=== PATIENT | male | born 1990 | race African-American/Black ===

== ENCOUNTER 2021-01-16 14:50 | Emergency (ER) | payer OTHER ==
[~2021-01-16] VITALS: Ht 182.9 cm; Wt 83.9 kg
[2021-01-16 14:50] VITALS: BP 155/101
[~2021-01-16 14:50] MED LIST: CIPROFLOXACIN500 M1 PO; NAPROSYN500 M1 PO; NAPROSYN500 MG PO
== END 2021-01-16 15:47 | disposition home or self-care (01) ==
LOC: ER 14:50
DX: R11.2 Nausea with vomiting, unspecified (principal); Z20.822 Contact with and (suspected) exposure to COVID-19